=== PATIENT | male | born 1965 | race Caucasian/White ===

== ENCOUNTER 2022-12-01 09:53 | Emergency (ER) | payer OTHER ==
[~2022-12-01] VITALS: Ht 182.9 cm; Wt 90.7 kg
[2022-12-01] MEDS ORDERED: METFORMIN HCL500 M4 PO (10:13)
[2022-12-01] MEDS ORDERED: LOSARTAN POTASS25 MG PO (10:13)
[2022-12-01] MEDS ORDERED: ROSUVASTATIN CA20 MG PO (10:13)
[2022-12-01] MEDS ORDERED: KETO10TA2 PO (12:27)
[2022-12-01] MEDS ORDERED: NORFLEX100MG PO (12:27)
== END 2022-12-01 13:36 | disposition home or self-care (01) ==
LOC: ER 09:53
DX: M25.552 Pain in left hip (principal)